=== PATIENT | female | born 1980 | race Caucasian/White ===

== ENCOUNTER 2017-07-30 16:22 | Emergency (ER) | payer MEDICAID, OTHER ==
[~2017-07-30] VITALS: Ht 154.9 cm; Wt 65.5 kg
[~2017-07-30 16:22] MED LIST: BIRTH CONTROL; LACT1CAP35; METH750T87; OXYC-307
[2017-07-30 17:54] LABS: BASOPHILS # (AUTO) 0.05 x10^3/uL (0-0.1); BASOPHILS % (AUTO) 1 % (0-1); EOSINOPHILS % (AUTO) 2 % (1-7); LYMPHOCYTES # (AUTO) 2.24 x10^3/uL (1-3.4); LYMPHOCYTES % (AUTO) 27 % (22-44); MD NO; MEAN CORPUSCULAR HEMOGLOBIN 30.6 pg (27.0-34.8); MEAN CORPUSCULAR HGB CONC 33.5 g/dL (32.4-35.8); MEAN CORPUSCULAR VOLUME 91.3 fL (80-100); MONOCYTES # (AUTO) 0.53 x10^3/uL (0.2-0.8); MONOCYTES % (AUTO) 7 % (2-9); NEUTROPHILS # (AUTO) 5.25 x10^3/uL (1.8-6.8); NEUTROPHILS % (AUTO) 64 % (42-75); PLATELET COUNT 261 x10^3/uL (130-400); RED BLOOD COUNT 4.89 x10^6/uL (3.82-5.3)
[2017-07-30 18:03] LABS: ALANINE AMINOTRANSFERASE 17 U/L (12-78); ALBUMIN 4.1 g/dL (3.4-5.0); ANION GAP 7 mmol/L (5-15); CALCIUM 8.2 mg/dL (8.5-10.1); CHLORIDE 111 mmol/L (98-107)
[2017-07-30 18:06] LABS: ALKALINE PHOSPHATASE 48 U/L (45-117); BILIRUBIN,TOTAL 0.2 mg/dL (0.2-1.0); TOTAL PROTEIN 7.4 g/dL (6.4-8.2)
[2017-07-30 18:15] LABS: CULTURE INDICATED? YES; MICROSCOPIC INDICATED
[2017-07-30 20:20] LABS: HCG UR SG 1.032 (1.003-1.030)
[2017-07-30] MEDS ORDERED: AZITHROMYCIN 500 MG TABLET ONE (21:24)
[2017-07-30] MEDS ORDERED: LIDOCAINE-MPF 1%, 2ML ONE (21:24)
[2017-07-30] MEDS ORDERED: CEFTRIAXONE 250 MG ONE (21:25)
[2017-07-30 21:27] LABS: WET PREP WBCS MANY (FEW)
[2017-07-30 21:29] LABS: CLUE CELLS NONE SEEN (NONE SEEN)
[2017-07-30] MEDS ORDERED: AZITHROMYCIN 500 MG TABLET PO ONE (21:30)
[2017-07-30] MEDS ORDERED: CEFTRIAXONE 250 MG IM ONE (21:30)
[2017-07-30 22:46] VITALS: BP 119/74
== END 2017-07-30 22:48 | disposition home or self-care (01) ==
LOC: ED 22:09
DX: N30.00 Acute cystitis without hematuria (principal); A59.01 Trichomonal vulvovaginitis; F17.200 Nicotine dependence, unspecified, uncomplicated
CPT/HCPCS: 36415; 80053; 81001; 81025; 83690; 85025; 87086; 87210; 87491; 87591; 87808; 96372; 99284; J0696

== ENCOUNTER 2017-12-20 15:16 | Emergency (ER) | payer MEDICAID ==
[~2017-12-20] VITALS: Ht 154.9 cm; Wt 63.5 kg
[2017-12-20 15:19] VITALS: BP 113/77
[2017-12-20] MEDS ORDERED: OXYcodone/APAP 5/325MG TABLET PO ONE (16:00)
[2017-12-20] MEDS ORDERED: ONDANSETRON ODT 4 MG PO ONE (16:00)
== END 2017-12-20 16:11 | disposition home or self-care (01) ==
LOC: ED 16:05
DX: N75.1 Abscess of Bartholin's gland (principal); F17.200 Nicotine dependence, unspecified, uncomplicated
CPT/HCPCS: 99283

== ENCOUNTER 2018-03-12 18:28 | Emergency (ER) | payer MEDICAID ==
[~2018-03-12] VITALS: Ht 154.9 cm; Wt 60.0 kg
[2018-03-12 18:39] VITALS: BP 129/79
[2018-03-12] MEDS ORDERED: METHOCARBAMOL 750 MG TABLET ONE (19:37)
[2018-03-12] MEDS ORDERED: KETOROLAC 30 MG/1 ML ONE (19:37)
[2018-03-12] MEDS ORDERED: METHOCARBAMOL 750 MG TABLET PO ONE (20:00)
[2018-03-12] MEDS ORDERED: KETOROLAC 30 MG/1 ML IM ONE (20:00)
== END 2018-03-12 20:51 | disposition home or self-care (01) ==
LOC: ED 19:58
DX: S16.1XXA Strain of muscle, fascia and tendon at neck level, initial encounter (principal); S33.5XXA Sprain of ligaments of lumbar spine, initial encounter; I10 Essential (primary) hypertension; V49.49XA Driver injured in collision with other motor vehicles in traffic accident, initial encounter; Y93.89 Activity, other specified; Y99.8 Other external cause status; Y92.89 Other specified places as the place of occurrence of the external cause
CPT/HCPCS: 70450; 72110; 72125; 99284